=== PATIENT | male | born 2000 | race African-American/Black ===

== ENCOUNTER 2021-02-02 10:51 | Emergency (ER) | payer MEDICAID, OTHER ==
[2021-02-02] MEDS ORDERED: Ibuprofen 600 MG Tab PO ONE (11:49)
--- NOTE | 2021-02-02 11:51 | EDM.PDOC ---
ED HPI GENERAL MEDICAL PROBLEM - General Chief Complaint: Lower Extremity Injury/Pain Stated Complaint: R LEG INJURY Time Seen by Provider: 02/02/21 11:38 Source of Information: Reports: Patient History Limitations: Reports: No Limitations - History of Present Illness INITIAL COMMENTS - FREE TEXT/NARRATIVE: Mr. Joy is a very pleasant 20-year-old gentleman who now presents the ED with pain to the dorsal aspect of his right foot, extending to his right lateral malleolus. He states that he tumbled over a couple of steps around 20:00 last night, injuring his right foot. He states that he did not have any pain until he woke up this morning, and now he has difficulty walking due to the pain. He is otherwise uninjured. No prior right ankle or foot injury. The patient states that he has not taken any [id number] or home remedies since the onset of his symptoms. Here in the ED, the patient is found to be hemodynamically stable, afebrile, saturating 99% on room air. He appears to be comfortable, in no acute distress. The patient states that from early November to early January, he had nausea and vomiting, which has since resolved. Otherwise, prior to last night, the patient denies having a recent fever, chills, sore throat, ear pain, nasal or sinus congestion, cough, dyspnea, chest pain, palpitations, nausea, vomiting, constipation, diarrhea, abdominal pain, urinary symptoms, recent weight gain or weight loss, recent bloody bowel movements or black bowel movements, recent joint aches, headaches, or rashes. The patient's PCP is in [place]. He has received 2 COVID vaccinations, although no influenza vaccination this season. Right Anterior Foot Pain Score (Numeric/FACES): 9 - Related Data Allergies Allergy/AdvReac Type Severity Reaction Status Date / Time No Known Allergies Allergy Verified 02/02/21 11:21 Home Meds: Home Meds Promethazine [Phenergan] 0.5 tab PO BID 02/02/21 [History] Past Medical History Oncologic (Cancer) History: Reports: Other (See Below) (Abdominal wall sarcoma as an , s/p excision, CTx) - Past Surgical History Oncologic Surgical History: Reports: Other (See Below) (Cancerous tumor excised from abdominal wall as an ) Social & Family History - Tobacco Use Tobacco Use Status *Q: Current Every Day Tobacco User Years of Tobacco use: 2 Packs/Tins Daily: 0.1 Packs/Tins Daily Comment: Down from 0.2 ppd - Caffeine Use Caffeine Use: Reports: None - Alcohol Use Alcohol Use History: No - Recreational Drug Use Recreational Drug Use: Yes Drug Use in Last 12 Months: Yes Recreational Drug Type: Reports: Marijuana/Hashish (last smoked Dec 2020) - Living Situation & Occupation Living situation: Reports: Single, with Significant Other (Girlfriend), with Family (2 kids) Occupation: Unemployed Review of Systems - Review of Systems Review Of Systems: Comprehensive ROS is negative, except as noted in HPI. ED EXAM, GENERAL - Physical Exam Exam: See Below Exam Limited By: No Limitations General Appearance: Alert, WD/WN, No Apparent Distress Extremities: Other (No visible abnormality to the right foot, when compared to the left, such as swelling, erythema, ecchymosis, or abrasion. The patient reports tenderness to palpation along the dorsal lateral aspect of his right foot, extending to the inferior aspect of his right lateral malleolus. Slight tendernes) Course - Vital Signs Last Recorded V/S: Last Vital Signs Temp 37.3 C 02/02/21 11:13 Pulse 95 02/02/21 11:13 Resp 16 02/02/21 11:13 BP 113/81 02/02/21 11:13 Pulse Ox 99 02/02/21 11:13 - Orders/Labs/Meds Meds: Medications Discontinued Medications Generic Name Dose Route Start Last Admin Trade Name Freq PRN Reason Stop Dose Admin Ibuprofen 600 mg 02/02/21 11:49 02/02/21 12:45 Ibuprofen 600 Mg Tab PO 02/02/21 11:50 600 mg ONETIME ONE Administration - Re-Assessments/Exams Free Text/Narrative Re-Assessment/Exam: 02/02/21 11:49 The patient likely strained his right 4th and 5th extensor tendons, however, I have ordered x-rays of his foot and ankle to rule out a fracture. In the meantime, the patient will be given ibuprofen. 02/02/21 12:18 4-view radiographs of the right ankle appear to be grossly normal, with no fractures or dislocations identified. Formal read per the Radiologist pending. 4-view radiographs of the right foot appear to be grossly normal, with no fractures or dislocations identified. Formal read per the Radiologist pending. 02/02/21 12:20 X-ray results discussed with the patient. As above, it appears that he strained some extensor tendons on the dorsal lateral aspect of his right foot. I am recommending ice, elevation, and ibuprofen. His pain should be significantly improved within a few days. If it does not get better, he can follow-up with Dr. Duarte. Departure - Departure Time of Disposition: 12:21 Disposition: Home, Self-Care 01 Condition: Good Clinical Impression: Strain of tendon of right foot and ankle - Discharge Information *PRESCRIPTION DRUG MONITORING PROGRAM REVIEWED*: Not Applicable *COPY OF PRESCRIPTION DRUG MONITORING REPORT IN PATIENT CHITO: Not Applicable Instructions: Muscle Strain, [id number] Referrals: PCP,Not In Area [Primary Care Provider] - Deanna Duarte MD [Ordering Only Provider] - Forms: ED Department Discharge Additional Instructions: You were seen in the emergency room after stumbling and injuring your right foot last night. Work-up in the ER included x-rays of your right ankle and right foot, all of which were unremarkable. No broken bones or dislocations were found. Based on your history, physical exam, and ER x-rays, you have most likely strained an extensor tendon on the backside of your right foot. We recommend that you ice and elevate your right foot as much as possible over the next 2 to 3 days, to help minimize swelling. We recommend that you take [id number] ibuprofen, 3 tablets (600 mg) up to every 8 hours, with food, as needed for discomfort. We would expect that you will have significant improvement of your foot pain within a few days. If not, please follow-up with your orthopedic surgeon Dr. Juan Francisco Duarte. If any other problems, please do not hesitate to return to the ER. Sepsis Event Note (ED) - Evaluation Sepsis Screening Result: No Definite Risk - Focused Exam Vital Signs: Vital Signs Temp Pulse Resp BP Pulse Ox 02/02/21 11:13 37.3 C 95 16 113/81 99
--- NOTE | 2021-02-02 12:42 | CR ---
Right ankle: 4 views of the right ankle were obtained. Comparison: No prior right ankle study is available. Ankle mortise is symmetric. No fracture, dislocation or other bony abnormality is seen. Impression: 1. Nothing acute is seen on 4-view right ankle study. Diagnostic code #1
--- NOTE | 2021-02-02 12:42 | CR ---
Right foot: 4 views of the right foot were obtained. Comparison: No prior foot exam is available. Joint spaces are preserved. No fracture, dislocation or other bony abnormality is appreciated. Impression: 1. No abnormality is appreciated on right foot exam. Diagnostic code #1
== END 2021-02-02 13:05 | disposition home or self-care (01) ==
LOC: JD.ED 10:51
DX: S96.911A Strain of unspecified muscle and tendon at ankle and foot level, right foot, initial encounter (principal); Z72.0 Tobacco use; W10.9XXA Fall (on) (from) unspecified stairs and steps, initial encounter
CPT/HCPCS: 73610; 73630; 99283; A9270

== ENCOUNTER 2021-07-09 13:57 | Emergency (ER) | payer MEDICAID, OTHER ==
[2021-07-09 14:56] LABS: CORONAVIRUS COVID-19 NAA NEGATIVE (NEGATIVE)
== END 2021-07-09 15:39 | disposition home or self-care (01) ==
LOC: JD.ED 13:57
DX: J45.21 Mild intermittent asthma with (acute) exacerbation (principal); Z87.891 Personal history of nicotine dependence; Z20.822 Contact with and (suspected) exposure to COVID-19
CPT/HCPCS: 0241U; 71045; 71045-26; 87651-QW; 99283-25; 99284